=== PATIENT | female | born 1990 | race Caucasian/White ===

== ENCOUNTER → 2022-07-30 | Outpatient (CLI) | payer OTHER, MEDICAID, SELFPAY ==
--- NOTE | 2022-07-30 16:04 | US_ITS ---
STUDY: FIRST TRIMESTER OBSTETRICAL ULTRASOUND REASON FOR EXAM: Female, 31 years old viability LMP: 06/11/2022 TECHNIQUE: Transvaginal TECHNICAL QUALITY: Adequate. PRIOR ULTRASOUND: None. FINDINGS: There is visualization of a single gestational sac in a normal intrauterine position. The mean sac diameter (MSD) measures 32 mm, indicating an estimated gestational age (EGA) of 8 weeks, 3 days. The gestational sac shape is within normal limits. There is a visualized yolk sac. The yolk sac measures 4 mm. The placenta is non-visualized. There is visualization of a live embryo. The crown-rump length (CRL) measures 10 mm, indicating an estimated gestational age (EGA) of 7 weeks, 1 days. There is demonstrated cardiac activity with a heart rate of 146 bpm. The estimated gestation age (EGA) by LMP is 7 weeks, 0 days. The estimated date of delivery (FIORELLA) by LMP is 03/18/2023. The estimated gestation age (EGA) by US is 7 weeks, 6 days. The estimated date of delivery (FIORELLA) by US is 03/12/2023. The uterus measures 8.2 x 6.7 x 4.4 cm. There is no demonstrated uterine fibroid. The cervix is closed. The right ovary measures 4.3 x 2.9 x 2.3 cm. There is no right ovarian cyst. There is no visualized right adnexal mass or complex lesion. The left ovary measures 3.0 x 1.5 x 1.7 cm. There is no left ovarian cyst. There is no visualized left adnexal mass or complex lesion. There is no fluid in the cul de sac. US/Transvaginal w/Preg US IMPRESSION: Living intrauterine of 7 weeks 6 days as described above. Electronically Signed: Ilya Ramos MD at 20:34 EST ,
== END | disposition home or self-care (01) ==
LOC: US 16:03
PROVIDERS: PCP Internal Medicine; Referring Provider Obstetrics & Gynecology; Visit Provider Obstetrics & Gynecology
DX: O20.0 Threatened abortion (principal); Z3A.00 Weeks of gestation of pregnancy not specified
CPT/HCPCS: 36415; 76817; 84702; 86850; 86900; 86901

== ENCOUNTER → 2022-08-14 | Outpatient (CLI) | payer OTHER, MEDICAID, SELFPAY ==
[2022-08-14 15:27] LABS: Absolute Lymphocyte Count 1.13 X10^3/uL (0.83-4.51); Absolute Neutrophil Count 3.3 X10^3/uL (2.0-7.7); Basophil# 0.01 X10^3/uL; Basophil% 0.2 % (0-1); Eosinophil# 0.06 X10^3/uL; Eosinophils% 1.2 % (0-5); Hematocrit 38.7 % (37-47); Hemoglobin 12.7 g/dL (12.0-15.0); Lymphocyte # 1.13 X10^3/ul (0.83-4.51); Lymphocyte % 22.9 % (19-41); Mean Corp Hgb Conc 32.8 g/dL (32-36); Mean Corpuscular Hgb 30.2 pg (27.0-32.0); Mean Corpuscular Volume 91.9 fL (81-99); Mean Platelet Vol. 11.2 fl (6.2-12.0); Monocyte% 8.1 % (0-10); NRBC Flagged by Analyzer 0 % (0-5); Neutrophil # 3.34 X10^3/uL (2.7-7.7); Neutrophil % 67.6 % (47-70); Platelet Count 167 K/mm3 (150-450); RBC Distribution Width CV 12.5 % (11.6-14.6); RBC Distribution Width SD 42.1 fl (35.1-43.9); Red Blood Count 4.21 M/mm3 (4.2-5.4); White Blood Count 4.9 K/mm3 (4.4-11.0)
[2022-08-14 17:10] LABS: HIV - WCH Non-Reactive (Nonreactive); Hepatitis B Surface Antigen Non-Reactive (Nonreactive); Hepatitis C Antibody Non-Reactive (Nonreactive); Rubella IgG Reactive (Nonreactive); Syphilis Antibodies Non-reactive
[2022-08-17 05:07] LABS: Chlamydia By Nucleic Acid AMP Negative (Negative)
[2022-08-17 08:29] LABS: Gonococcus By Nucleic Acid AMP Negative (Negative)
[2022-08-22 15:09] LABS: HPV APTIMA, High Risk Negative (Negative)
== END | disposition home or self-care (01) ==
PROVIDERS: PCP Internal Medicine; Referring Provider Obstetrics & Gynecology; Visit Provider Obstetrics & Gynecology
DX: Z34.90 Encounter for supervision of normal pregnancy, unspecified, unspecified trimester (principal)
CPT/HCPCS: 36415; 85025; 86703; 86762; 86780; 86803; 86850; 86900; 86901; 87086; 87340; 87491; 87591; 87624; 88175; G0145

== ENCOUNTER → 2022-11-14 | Outpatient (CLI) | payer OTHER, MEDICAID, SELFPAY | END | disposition home or self-care (01) | LOC: LABSPEC 10:28 | PROVIDERS: PCP Internal Medicine; Referring Provider Advanced Practice Midwife; Visit Provider Advanced Practice Midwife | DX: O26.899 Other specified pregnancy related conditions, unspecified trimester (principal); N89.8 Other specified noninflammatory disorders of vagina | CPT/HCPCS: 87070; 87086; 87205 ==

== ENCOUNTER → 2022-12-27 | Outpatient (CLI) | payer OTHER, SELFPAY ==
[2022-12-27 08:04] LABS: Absolute Lymphocyte Count 1.01 X10^3/uL (0.83-4.51); Absolute Neutrophil Count 4.5 X10^3/uL (2.0-7.7); Basophil# 0.02 X10^3/uL; Basophil% 0.3 % (0-1); Eosinophil# 0.19 X10^3/uL; Hemoglobin 11.8 g/dL (12.0-15.0); Lymphocyte # 1.01 X10^3/ul (0.83-4.51); Lymphocyte % 16.1 % (19-41); Mean Corp Hgb Conc 32.8 g/dL (32-36); Mean Corpuscular Hgb 30.8 pg (27.0-32.0); Mean Platelet Vol. 11.4 fl (6.2-12.0); Monocyte# 0.51 X10^3/uL; Monocyte% 8.1 % (0-10); NRBC Flagged by Analyzer 0 % (0-5); Neutrophil # 4.52 X10^3/uL (2.7-7.7); Neutrophil % 72.2 % (47-70); Platelet Count 154 K/mm3 (150-450); RBC Distribution Width CV 13.2 % (11.6-14.6); RBC Distribution Width SD 45.6 fl (35.1-43.9); Red Blood Count 3.83 M/mm3 (4.2-5.4); White Blood Count 6.3 K/mm3 (4.4-11.0)
[2022-12-27 08:13] LABS: Glucose Challenge Gest 1H 50g 87 mg/dL (70-140)
[2022-12-27 09:02] LABS: HIV - WCH Non-Reactive (Nonreactive); Syphilis Antibodies Non-reactive
== END | disposition home or self-care (01) ==
PROVIDERS: PCP Internal Medicine; Referring Provider Obstetrics & Gynecology; Visit Provider Obstetrics & Gynecology
DX: Z34.90 Encounter for supervision of normal pregnancy, unspecified, unspecified trimester (principal)
CPT/HCPCS: 36415; 82950; 85025; 86703; 86780

== ENCOUNTER → 2023-02-22 | Outpatient (CLI) | payer OTHER, SELFPAY | END | disposition home or self-care (01) | LOC: LABSPEC 17:01 | PROVIDERS: PCP Internal Medicine; Referring Provider Registered Nurse; Visit Provider Registered Nurse | DX: Z34.90 Encounter for supervision of normal pregnancy, unspecified, unspecified trimester (principal) | CPT/HCPCS: 87081 ==

== ENCOUNTER 2023-03-16 09:55 | Inpatient (IN) | payer OTHER, MEDICAID, SELFPAY ==
[2023-03-16] VITALS (57 sets, daily range): BP systolic 107–141; BP diastolic 56–83; PULSE 77–133; RESP 15–17; TEMP 36.2–37.5; O2SAT 91–100; BMI 27.2
[2023-03-16] MEDS: Lactated Ringers 1,000 ML 50 ML IV (10:45)
[2023-03-16] MEDS: LACTATED RINGERS 500 ML 999 ML IV (11:02)
[2023-03-16 11:11] LABS: Absolute Neutrophil Count 6.7 X10^3/uL (2.0-7.7); Basophil# 0.02 X10^3/uL; Basophil% 0.2 % (0-1); Eosinophil# 0.08 X10^3/uL; Eosinophils% 0.9 % (0-5); Hematocrit 38.2 % (37-47); Hemoglobin 12.8 g/dL (12.0-15.0); Lymphocyte % 11.8 % (19-41); Mean Corp Hgb Conc 33.5 g/dL (32-36); Mean Corpuscular Hgb 30.8 pg (27.0-32.0); Mean Platelet Vol. 13.2 fl (6.2-12.0); Monocyte# 0.61 X10^3/uL; Monocyte% 7.2 % (0-10); NRBC Flagged by Analyzer 0 % (0-5); Neutrophil # 6.72 X10^3/uL (2.7-7.7); Neutrophil % 79.5 % (47-70); Platelet Count 125 K/mm3 (150-450); RBC Distribution Width CV 13.7 % (11.6-14.6); Red Blood Count 4.15 M/mm3 (4.2-5.4); White Blood Count 8.5 K/mm3 (4.4-11.0)
[2023-03-16 11:54] LABS: Syphilis Antibodies Non-reactive
[2023-03-16] MEDS: fentaNYL-bupivacaine (epidural) 100 ML BAG EPIDURAL (12:14)
--- NOTE | 2023-03-16 15:02 | HP.PCM.OB_ITS ---
HPI - General General Date of Admission: 03/16/23 HPI Narrative LELAND PINEDA, is a 32 F who presents IAL ruptured clear fluid 4 cm regular ctx vertex Maternal Data Information FIORELLA Calculator Estimated Delivery Date Method Current WG Current Estimate 03/18/23 LMP (Certain) 39w 5d PFSH PFSH Medical History Allergic dermatitis Cellulitis, abdominal wall Dysuria during Headache, migraine Knee pain Seasonal allergies Tonsillectomy planned Home Medications loratadine 10 mg tablet (Claritin) 10 mg PO DAILY seasonal allergies 10/31/21 [History Last Taken 03/15/23 09:00 10 mg] one a day with choline 1 tab PO 1XD 10/31/21 [History Last Taken 03/15/23 09:00 1 tab] Allergy/AdvReac Type Severity Reaction Status Date / Time cat dander Allergy Mild unknown Verified 03/16/23 10:30 prednisone Allergy Mild Other Verified 03/16/23 10:30 Family History Grandmother Diabetes Aunt Thyroid disorder Grandmother Heart disease Pacemaker Brother Asthma Surgical History History of nasal cauterization History of tonsillectomy and adenoidectomy Social History household members: spouse current occupational status: employed current occupation: School based therapist pets and animals: Yes pets and animals: cat(s) history of recent travel: No sexually active: Yes Smoking Status: Never smoker Electronic Cigarette Use: not used second hand exposure: No alcohol intake: current alcohol intake frequency: holidays/special occasions only Alcohol type: hard liquor substance use type: does not use caffeine: Yes (1 cup a day) Type: coffee during the past year weight has: remained stable what type of physical activity do you participate in: none and weight training frequency: 1-2 times per week seatbelt use: always do you feel safe at home: Yes History Elective abortions Hx Para 0 Spontaneous abortions Hx # Term Pregnancies Ectopic pregnancies Hx # Pregnancies Multiple births # of living children Visit Details Expected Delivery Route/Plan Labor Preferences- CB/BF classes: encourage labor support person: Isaac- do not ask about medical things, medical anxiety labor intervention preferences: none pain management options preferred: epidural cut cord/dad catch: NOOOO : yes PP control planned: discussed possible routes of delivery and associated risks: [] special requests: [] Plans Covid status: discussed Flu vaccine: discussed Tdap vaccine: given Rhogam: na LARC form signed: declined movement and labor precautions reviewed. Problem list reviewed and updated with the most current plan of care details and appropriate orders placed. Relevant counseling for the gestational age provided. Continue routine care and follow up unless otherwise noted in visit notes/problem list details OB Flowsheet Initial Weight: 165 lb Date -?-?-?-?-?-?-?-?-?-?-?-?- EGA Weight BP Urine Prot -?-?-?-?-?-?-?-?-?-?-?-?- Glucose FHR FuHt Pres Dilation -?-?-?-?-?-?-?-?-?-?-?-?- Effaced St Visit Note 08/14/22 -?-?-?-?-?-?-?-?-?-?-?-?- 9w 1d 165 lb 6 oz (+6 oz) 118/72 -?-?-?-?-?-?-?-?-?-?-?-?- 170 -?-?-?-?-?-?-?-?-?-?-?-?- SM- CR L2.4cm co ns with lmp 09/10/22 -?-?-?-?-?-?-?-?-?-?-?-?- 13w 0d 169 lb 2 oz (+4 lb 2 oz) 123/73 -?-?-?-?-?-?-?-?-?-?-?-?- 160 -?-?-?-?-?-?-?-?-?-?-?-?- SM_ no vb crmapi ng 10/10/22 -?-?-?-?-?-?-?-?-?-?-?-?- 17w 2d 172 lb 6 oz (+7 lb 6 oz) 115/67 Negative -?-?-?-?-?-?-?-?-?-?-?-?- Negative 150 -?-?-?-?-?-?-?-?-?-?-?-?- LC- no vb/crampi ng. MFM appt next week. discussed and declines AFP. 10/23/22 -?-?-?-?-?-?-?-?-?-?-?-?- 19w 1d 173 lb 6 oz (+8 lb 6 oz) 109/70 Negative -?-?-?-?-?-?-?-?-?-?-?-?- Negative 145 -?-?-?-?-?-?-?-?-?-?-?-?- KW-+ FM. FHT christopher ck today for vaginal bleeding over the weekend. Hx of Placenta previa. She and her had intercourse and then she had spotting after, she said it did stop but she filled a panty liner. No spotting since. pelvic rest precautions reviewed. 11/07/22 -?-?-?-?-?-?-?-?-?-?-?-?- 21w 2d 181 lb 2 oz (+16 lb 2 oz) 112/64 Negative -?-?-?-?-?-?-?-?-?-?-?-?- Negative 159 -?-?-?-?-?-?-?-?-?-?-?-?- MH-No VB since l ast visit. Good Fm. Denies concerns 11/14/22 -?-?-?-?-?-?-?-?-?-?-?-?- 22w 2d 178 lb (+13 lb) 114/67 Trace -?-?-?-?-?-?-?-?-?-?-?-?- Negative 155 22 0 -?-?-?-?-?-?-?-?-?-?-?-?- kw- +fm. no vb/c ramping. noticed increased vaginal discharge. spec exam, urine cx and red top 12/06/22 -?-?-?-?-?-?-?-?-?-?-?-?- 25w 3d 179 lb 6 oz (+14 lb 6 oz) 114/74 Negative -?-?-?-?-?-?-?-?-?-?-?-?- Negative 145 24 -?-?-?-?-?-?-?-?-?-?-?-?- JV- gct ordered. no complaints. has us scheduled for previa follow up at 28 weeks. 12/27/22 -?-?-?-?-?-?-?-?-?-?-?-?- 28w 3d 185 lb 4 oz (+20 lb 4 oz) 125/74 Negative -?-?-?-?-?-?-?-?-?-?-?-?- Negative 140 27 -?-?-?-?-?-?-?-?-?-?-?-?- MH-No Vb, LOF. G ood FM. Larc, tdap 01/04/23 -?-?-?-?-?-?-?-?-?-?-?-?- 29w 4d 187 lb (+22 lb) 114/77 Negative -?-?-?-?-?-?-?-?-?-?-?-?- Negative 145 29 -?-?-?-?-?-?-?-?-?-?-?-?- SM- no vb lof go od fm no regular ctx 01/18/23 -?-?-?-?-?--?-?-?-?-?-?-?- 31w 4d 191 lb 4 oz (+26 lb 4 oz) 113/74 Negative -?-?-?-?-?-?-?-?-?-?-?-?- Negative 132 31 -?-?-?-?-?-?-?-?-?-?-?-?- JV- no lof, vagi nal bleeding, or dec fm 01/30/23 -?-?-?-?-?-?-?-?-?-?-?-?- 33w 2d 193 lb 6 oz (+28 lb 6 oz) 103/67 Negative -?-?-?-?-?-?-?-?-?-?-?-?- Negative 135 32 -?-?-?-?-?-?-?-?-?-?-?-?- JV- no lof, vagi nal bleeding, or dec fm. not sleeping well, causing some headaches. bp's normal at home. no proteinuria 02/15/23 -?-?-?-?-?-?-?-?-?-?-?-?- 35w 4d 199 lb 4 oz (+34 lb 4 oz) 108/72 Negative -?-?-?-?-?-?-?-?-?-?-?-?- Negative 140 35 -?-?-?-?-?-?-?-?-?-?-?-?- SM- no vb lof go od fm no regular ctx 02/22/23 -?-?-?-?-?-?-?-?-?-?-?-?- 36w 4d 202 lb 6 oz (+37 lb 6 oz) 118/76 Negative -?-?-?-?-?-?-?-?-?-?-?-?- Negative 138 36 -?-?-?-?-?-?-?-?-?-?-?-?- Lc- no lof/vb/ct x. good fm. gbs collected today. labor precautions provided. declines exam today 02/28/23 -?-?-?-?-?-?-?-?-?-?-?-?- 37w 3d 202 lb 2 oz (+37 lb 2 oz) 114/72 Negative -?-?-?-?-?-?-?-?-?-?-?-?- Negative 140 36 -?-?-?-?-?-?-?-?-?-?-?-?- SM- no vb lof go od fm no regular ctx 03/08/23 -?-?-?-?-?-?-?-?-?-?-?-?- 38w 4d 204 lb (+39 lb) 120/75 Negative -?-?-?-?-?-?-?-?-?-?-?-?- Negative 145 32 Cephalic 2 -?-?-?-?-?-?-?-?-?-?-?-?- 80 -2 JV- bedsid e ultrasound performed shows jeff of 15, vtx. ordering growth scan for size/date discrepancy. pt very tall and reassured that measuring tape not always accurage because of this. 03/15/23 -?-?-?-?-?-?-?-?-?-?-?-?- 39w 4d 204 lb 6 oz (+39 lb 6 oz) 134/67 Negative -?-?-?-?-?-?-?-?-?-?-?-?- Negative 150 34 Cephalic 3 -?-?-?-?-?-?-?-?-?-?-?-?- 80 -2 KW-no vb/l of/ctx. good fm. labor precautions. membrane sweep. NST FHR Rate Baby A Baseline: 140 Variability:: Moderate Accelerations:: 15 x 15 Decelerations:: None NST Reactive:: Yes FHR Category:: Category I Uterine Activity:: q3-5 ROS Constitutional Constitutional: Reports systems reviewed and no addt'l complaints, except as documented ENT HEENT: Reports systems reviewed and no addt'l complaints, except as documented Cardiovascular Cardiovascular: Reports systems reviewed and no addt'l complaints, except as documented Respiratory/Chest Respiratory/Chest: Reports systems reviewed and no addt'l complaints, except as documented Gastrointestinal Gastrointestinal: Reports systems reviewed and no addt'l complaints, except as documented and nausea; Denies abdominal pain Genitourinary Genitourinary: Reports systems reviewed and no addt'l complaints, except as documented, contractions Details: present and frequency (regular ) and movement Details: present Musculoskeletal Musculoskeletal: Reports systems reviewed and no addt'l complaints, except as documented Integumentary Integumentary: Reports as per HPI Neurologic Neurologic: Reports systems reviewed and no addt'l complaints, except as documented Endocrine Endocrinology: Reports systems reviewed and no addt'l complaints, except as documented Vital Signs Vital Signs Vital Signs: 03/16/23 10:27 03/16/23 10:27 03/16/23 10:27 Temperature Temperature Source Pulse Rate 87 Blood Pressure 120/73 BP Systolic 120 BP Diastolic 73 Pulse Ox 97 03/16/23 10:27 03/16/23 10:27 03/16/23 10:27 Temperature Temperature Source Temporal Pulse Rate 86 Blood Pressure BP Systolic BP Diastolic Pulse Ox 98 03/16/23 10:27 03/16/23 11:05 03/16/23 11:37 Temperature 98.9 F 99.0 F Temperature Source Pulse Rate Blood Pressure 118/77 BP Systolic 118 BP Diastolic 77 Pulse Ox 03/16/23 11:37 03/16/23 11:49 03/16/23 11:49 Temperature Temperature Source Pulse Rate 82 83 Blood Pressure 141/83 H BP Systolic 141 BP Diastolic 83 Pulse Ox 03/16/23 11:53 03/16/23 11:53 03/16/23 11:56 Temperature Temperature Source Pulse Rate 83 81 Blood Pressure 121/74 H BP Systolic 121 BP Diastolic 74 Pulse Ox 03/16/23 11:56 03/16/23 11:58 03/16/23 11:58 Temperature Temperature Source Pulse Rate 79 Blood Pressure 113/73 BP Systolic 113 BP Diastolic 73 Pulse Ox 99 03/16/23 12:01 03/16/23 12:01 03/16/23 12:03 Temperature Temperature Source Pulse Rate 86 Blood Pressure 111/75 BP Systolic 111 BP Diastolic 75 Pulse Ox 99 03/16/23 12:03 03/16/23 12:06 03/16/23 12:06 Temperature Temperature Source Pulse Rate 83 79 Blood Pressure BP Systolic BP Diastolic Pulse Ox 98 03/16/23 12:08 03/16/23 12:08 03/16/23 12:11 Temperature Temperature Source Pulse Rate 85 80 Blood Pressure 115/75 BP Systolic 115 BP Diastolic 75 Pulse Ox 03/16/23 12:11 03/16/23 12:13 03/16/23 12:13 Temperature Temperature Source Pulse Rate 77 Blood Pressure 115/75 BP Systolic 115 BP Diastolic 75 Pulse Ox 99 03/16/23 12:16 03/16/23 12:16 03/16/23 12:18 Temperature Temperature Source Pulse Rate 83 Blood Pressure 117/75 BP Systolic 117 BP Diastolic 75 Pulse Ox 98 03/16/23 12:18 03/16/23 12:21 03/16/23 12:21 Temperature Temperature Source Pulse Rate 81 89 Blood Pressure BP Systolic BP Diastolic Pulse Ox 98 03/16/23 12:23 03/16/23 12:23 03/16/23 12:28 Temperature Temperature Source Pulse Rate 89 Blood Pressure 120/82 H 121/82 H BP Systolic 120 121 BP Diastolic 82 82 Pulse Ox 03/16/23 12:28 03/16/23 12:29 03/16/23 12:29 Temperature Temperature Source Temporal Pulse Rate 78 Blood Pressure 119/72 BP Systolic 119 BP Diastolic 72 Pulse Ox 03/16/23 12:29 03/16/23 12:29 03/16/23 13:10 Temperature 97.1 F L Temperature Source Pulse Rate 80 Blood Pressure 120/77 BP Systolic 120 BP Diastolic 77 Pulse Ox 03/16/23 13:10 03/16/23 13:10 03/16/23 14:19 Temperature 97.7 F L Temperature Source Pulse Rate 77 Blood Pressure 125/74 H BP Systolic 125 BP Diastolic 74 Pulse Ox 03/16/23 14:19 03/16/23 14:18 03/16/23 14:18 Temperature Temperature Source Temporal Pulse Rate 78 Blood Pressure BP Systolic BP Diastolic Pulse Ox 100 03/16/23 14:18 Temperature 98.4 F Temperature Source Pulse Rate Blood Pressure BP Systolic BP Diastolic Pulse Ox Weight Weight: 201 lb Body Mass Index (BMI) 27.2 Physical Exam Const alert, oriented x3 and healthy appearing Constitutional Narrative: uncomfortable with contractions HEENT normocephalic and moist oral mucous membranes Head and Scalp: atraumatic Neck full ROM, no lymphadenopathy, supple and thyroid normal General: trachea midline Thyroid: thyroid normal Lymph Lymphatic: no lymphadenopathy noted Chest inspection of chest normal Resp normal respiratory effort Cardio regular rate GI normal to inspection, nondistended, normoactive bowel sounds, soft to palpation and non-tender Inspection: gravid external exam normal Bimanual Exam - Vag & Uterus: uterus non-tender Manual OB Exam: estimated gestational size appropriate, presentation cephalic, dilated, effaced and station Extremity normal to inspection General Extremity: Negative for edema Skin no rashes or lesions noted Neuro deep tendon reflexes 2+ bilaterally Motor Exam: strength 5/5 throughout and clonus absent Psych mental status grossly normal Labs Labs Labs: Blood Type O POSITIVE Antibody Screen NEGATIVE Hct 38.2 % (37-47) Hgb 12.8 g/dL (12.0-15.0) Obstetrics US Syphilis Total Ab Non-reactive Rubella IgG Antibody Reactive (Nonreactive) Hep Bs Antigen Non-Reactive (Nonreactive) Chlamydia DNA (DAVID) Negative (Negative) Neisseria gonorrhoeae DNA (DAVID) Negative (Negative) HIV 1&2 Antibody Non-Reactive (Nonreactive) Glucose 1 Hr 50 gm 87 mg/dL (70-140) Assessment & Plan (1) Uterine size date discrepancy: COMMENT: growth ultrasound ordered. (2) : QUALIFIERS: Weeks of gestation: 39 weeks Qualified Code(s): Z3A.39 - 39 weeks gestation of COMMENT: GBS negative.genetic, ntd, and carrier screening declined. nl anatomy (3) Supervision of normal : QUALIFIERS: Normal : normal first Trimester: second trimester Qualified Code(s): Z34.02 - Encounter for supervision of normal first , second trimester COMMENT: PRR FIORELLA 03/18/23 girl Laura Isaac (4) Active labor at term: (5) SROM (spontaneous rupture of membranes): PLAN: Plan Patient presents IAL, plan expectant management for , pitocin PRN if needed. Pain management: plans epidural. GBS neg. Management of any complications: none I have reviewed the [facility] and made any clinically relevant updates.
--- NOTE | 2023-03-16 15:04 | OP.PCM_ITS ---
Assessment & Plan (1) SROM (spontaneous rupture of membranes): (2) Active labor at term: (3) : QUALIFIERS: Weeks of gestation: 39 weeks Qualified Code(s): Z3A.39 - 39 weeks gestation of COMMENT: GBS negative.genetic, ntd, and carrier screening declined. nl anatomy (4) Supervision of normal : QUALIFIERS: Normal : normal first Trimester: second trimester Qualified Code(s): Z34.02 - Encounter for supervision of normal first , second trimester COMMENT: PRR FIORELLA 03/18/23 risa Sanchez Isaac (5) Vaginal delivery: COMMENT: SM IAL girl Laura Maternal Data Information FIORELLA Calculator Estimated Delivery Date Method Current WG Current Estimate 03/18/23 LMP (Certain) 39w 5d Vaginal Delivery Operative Information Date of Procedure: 03/16/23 Pre-Operative Diagnosis: see a/p diagnoses Post-Operative Diagnosis: same Surgery / Procedure Performed: Spontaneous Vaginal Delivery Type of Anesthesia: Epidural Special Medications: none Estimated Blood Loss: 500 Fluids Replaced: crystalloid Findings Description of Procedure: Patient began pushing and delivered the head in the DANAE presentation. The head was delivered atraumatically and a loose nuchal cord ?1 was identified and the infant delivered through without complication. The anterior and posterior shoulders delivered without complication followed by the rest of the infant and the infant was placed on the maternal abdomen. Delayed cord clamping was employed for approximately 60 seconds. Cord was clamped and cut and gentle traction was applied to the cord and the placenta delivered spontaneously immediately following it was noted to be intact with three-vessel cord. The perineum and vagina were inspected and noted to have a second degree perineal laceration which was repaired in the usual fashion with 3-0 vicryl rapide. retained membranes were noted and therefore a bedside currettage was performed and uterine exploration performed manually to determine if everything was removed and it was confirmed. ancef given. methergine and TXA also given. EBL was 500. Patient and infant tolerated delivery well. Amniotic Fluid Description: Clear Placental Delivery Description: Spontaneous Placenta Disposition: [facility] Cord Vessel Description: 3 Vessels Cord Entanglement: None Delayed Cord Clamping: Yes Post Vaginal Delivery Medications Given After Delivery: IV Pitocin Episiotomy Description: None Complication Complications: None Procedures Urinary/Genital [id number]: [id number] Vaginal Delivery [facility]
--- NOTE | 2023-03-16 15:05 | DCINST_ITS ---
Discharge Instructions Diet Discharge Diet: No restrictions Activity Discharge Activity: Return to Normal Activity, May Drive, May Shower and May Take a Tub Bath (in 4 weeks) May resume sexual activity in: 6-8 weeks (after seen by OB provider) Weight Bearing Status: Full weight bearing Lifting Restrictions: none Dressing / Incision Call your doctor if you observe: Fever of 101 or Higher, Inability to urinate, Using more than 1 pad per hour (for more than 2 hours in a row or more), Shortness of breath, Dizziness, Chest pain and - (headache not controlled with tylenol, change in vision) Follow Up Care When: in 6 weeks for visit, call the office to make the appointment. If you had elevated blood pressures call the office to be seen within 1 week. Test Results: Test results from this visit will be discussed in further detail at your follow- up appointment, if applicable. Discharge Plan Admission Admit Date/Time: 03/16/23 09:55 Attending Provider: Mehreen Rose Primary Care Provider: Kadi Campbell Discharge Orders/Prescriptions Prescriptions: No Action loratadine [Claritin] 10 mg tablet 10 mg PO DAILY one a day with choline 1 tab PO 1XD Referrals / Follow Up: Kadi Campbell MD [Primary Care Provider] - Disposition Disposition (needs filled in before D/C Order can be placed): Home, Self Care
[2023-03-16] MEDS: Oxytocin 15 Units/NS 250ml 15 UNITS/250 ML IV.SOLN 83 UNITS IV (15:37)
[2023-03-16] MEDS: Oxytocin 10 UNITS/ML Vial IM (15:37)
[2023-03-16] MEDS: Methylergonovine 0.2 MG/ML Ampul IM (15:53)
[2023-03-16] MEDS: 0.9% Saline Lock 10 ML Syringe IV ×2 (16:23→16:41)
[2023-03-16] MEDS: TRANEXAMIC ACID 1,000 MG in 0.9% Normal Saline (100mL Bag) 100 ML 440 MG IV (16:24)
[2023-03-16] MEDS: Cefazolin 2 GM in 0.9% Normal Saline (100mL Bag) 100 ML IV (16:45)
[2023-03-17 05:10] VITALS: BP 109/67; PULSE 113; RESP 16; TEMP 36.2; O2SAT 97
[2023-03-17 08:17] VITALS: BP 107/67; PULSE 103; RESP 16; TEMP 37; O2SAT 97
[2023-03-17] MEDS: Influenza Virus Vac Quad 23-24 60 MCG/0.5 ML SYRINGE IM (10:34)
--- NOTE | 2023-03-17 10:45 | PN.OBGYN_ITS ---
Subjective Subjective Patient doing well without complaints. Tolerating PO. Ambulating and voiding without difficulty. feeding well. Denies chest pain, shortness of breath, calf pain/swelling, fevers, chills, lightheadedness. Objective Data Objective Data Vital Signs: Vital Signs Temp Pulse Resp BP Pulse Ox O2 Del Method 98.6 F 103 H 16 107/67 97 Room Air 03/17/23 08:17 03/17/23 08:17 03/17/23 08:17 03/17/23 08:17 03/17/23 08:17 03/17/23 08:17 Oxygen Delivery Method Room Air Weight: 201 lb Body Mass Index (BMI) 27.2 Intake & Output: Intake and Output for Last 24 Hours 03/15/23 03/16/23 03/17/23 23:59 23:59 23:59 Intake Total 1818.34 / 1818.34 Output Total 1500 / 1500 Balance 318.34 / 318.34 Lab / Micro Data 03/16/23 10:45 Labs: Laboratory Results - last 24 hr 03/16/23 10:45: WBC 8.5, RBC 4.15 L, Hgb 12.8, Hct 38.2, MCV 92.0, MCH 30.8, MCHC 33.5, RDW Std Deviation 46.0 H, RDW Coeff of Lauren 13.7, Plt Count 125 L, MPV 13.2 H, Immature Gran % (Auto) 0.400, Neut % (Auto) 79.5 H, Lymph % (Auto) 11.8 L, [place] % (Auto) 7.2, Eos % (Auto) 0.9, Baso % (Auto) 0.2, Absolute Neuts (auto) 6.7, Absolute Lymphs (auto) 1.00, Nucleated RBC % 0, Syphilis Total Ab Non- reactive, Blood Type O POSITIVE, Antibody Screen NEGATIVE ROS Constitutional Constitutional: Reports systems reviewed and no addt'l complaints, except as documented Cardiovascular Cardiovascular: Reports systems reviewed and no addt'l complaints, except as documented Respiratory/Chest Respiratory/Chest: Reports systems reviewed and no addt'l complaints, except as documented Gastrointestinal Gastrointestinal: Reports systems reviewed and no addt'l complaints, except as documented Physical Exam Const alert, oriented x3 and no apparent distress HEENT Head and Scalp: atraumatic Resp normal respiratory effort GI soft to palpation and non-tender Bimanual Exam - Vag & Uterus: uterus non-tender Uterus Palpation: uterus fundus firm (below Umbilicus) Assessment & Plan (1) Vaginal delivery: COMMENT: SM IAL girl Laura PLAN: Plan s/p PPD # 1 1. routine post delivery care 2. breast feeding- support given 3. rh positive 4. rubella immune
[2023-03-17 12:15] VITALS: BP 110/74; PULSE 104; RESP 15; TEMP 36.6; O2SAT 98
[2023-03-17 16:13] VITALS: BP 105/69; PULSE 103; RESP 14; TEMP 36.5; O2SAT 98
== END 2023-03-17 18:08 | disposition home or self-care (01) | DRG 807 ==
LOC: WPOUT 09:55 → WP 09:55
PROVIDERS: Admitting Provider Obstetrics & Gynecology; PCP Internal Medicine; Referring Provider Obstetrics & Gynecology; Visit Provider Obstetrics & Gynecology
DX: O26.843 Uterine size-date discrepancy, third trimester (principal); Z37.0 Single live birth; O69.81X0 Labor and delivery complicated by cord around neck, without compression, not applicable or unspecified; O70.1 Second degree perineal laceration during delivery; Z3A.39 39 weeks gestation of pregnancy
CPT/HCPCS: 59025; 59050; 85025; 86780; 86850; 86900; 86901; 99221; J7120; 90686; A4216; G0378